=== PATIENT | female | born 1945 | race Two or more races ===

== ENCOUNTER 2023-05-04 10:03 | Emergency (ER) | payer SELFPAY ==
[2023-05-04] MEDS ORDERED: Sodium Chloride 0.9% 2.5 ML Syringe FLUSH PRN (10:09)
[2023-05-04] MEDS ORDERED: Sodium Chloride 0.9% 10 ML Syringe FLUSH PRN (10:09)
[2023-05-04 10:27] LABS: BASOPHILS PERCENT AUTO 0.3 % (0.0-1.5); EOSINOPHILS ABSOLUTE AUTO 0.1 K/uL (0.0-0.7); EOSINOPHILS PERCENT AUTO 0.8 % (0.0-7.0); HEMATOCRIT 41.1 % (36.0-46.0); HEMOGLOBIN 14.2 g/dL (12.0-16.0); LYMPHOCYTES PERCENT AUTO 15.8 % (16.0-40.0); MEAN CORPUSCULAR HEMOGLOBIN 32.6 pg (27.0-32.0); MEAN CORPUSCULAR HGB CONC 34.5 g/dL (31.0-37.0); MEAN CORPUSCULAR VOLUME 94.5 fL (80.0-98.0); MONOCYTES ABSOLUTE AUTO 0.5 K/uL (0.0-0.8); MONOCYTES PERCENT AUTO 7.6 % (0.0-15.0); NEUTROPHILS ABSOLUTE AUTO 4.5 K/uL (1.4-5.7); NEUTROPHILS PERCENT AUTO 75.5 % (48.0-80.0); NRBC ABSOLUTE 0 K/uL; PLATELET COUNT,PLT 159 K/uL (150-400); RED BLOOD CELL COUNT 4.35 M/uL (4.30-5.90); WHITE BLOOD CELL COUNT,WBC 6.02 K/uL (4.0-11.0)
[2023-05-04] MEDS ORDERED: Nitroglycerin 0.4 MG Tab.SL SL STA (10:27)
[2023-05-04] MEDS ORDERED: Aspirin 81 MG Tab.Chew PO STA (10:27)
[2023-05-04 10:42] LABS: INR 0.97 (0.86-1.11)
[2023-05-04] MEDS ORDERED: Morphine 2 MG/ML SYRINGE IVPUSH STA ×2 (10:48→11:45)
[2023-05-04 10:59] LABS: ALBUMIN 3.5 g/dL (3.4-5.0); BILIRUBIN TOTAL 0.7 mg/dL (0.2-1.0); CALCIUM 8.8 mg/dL (8.5-10.1); CARBON DIOXIDE,CO2 26.7 mmol/L (21.0-32.0); CREATININE 0.8 mg/dL (0.6-1.0); EST CRCL DRUG DOSING (CG) 40.29 mL/min; POTASSIUM,K 3.7 mmol/L (3.5-5.1); PROTEIN TOTAL,TP 7.1 g/dL (6.4-8.2)
[2023-05-04 11:02] LABS: MAGNESIUM 1.6 mg/dL (1.8-2.4)
[2023-05-04] MEDS ORDERED: Magnesium Sulfate/Water 2 GM in Premix Bag 1 BAG IV STA (11:14)
[2023-05-04] MEDS ORDERED: Iopamidol 755 Mg/ML 100 ML Bottle IVPUSH ONE (11:59)
[2023-05-04] MEDS ORDERED: oxyCODONE 5 MG Tab PO STA (12:37)
[2023-05-04] MEDS ORDERED: Acetaminophen 500 MG Tab PO STA (12:38)
== END 2023-05-04 16:41 | disposition home or self-care (01) ==
LOC: MW.ED 10:03
DX: M48.54XA Collapsed vertebra, not elsewhere classified, thoracic region, initial encounter for fracture (principal); E83.42 Hypomagnesemia; R07.9 Chest pain, unspecified; K80.20 Calculus of gallbladder without cholecystitis without obstruction; Z20.822 Contact with and (suspected) exposure to COVID-19
CPT/HCPCS: 36415; 71045; 71275; 76705; 80053; 83690; 83735; 83880; 84484; 85025; 85610; 87635; 93005; 93971; 96365; 96375; 96376; 99285; A9270; J2270; J3475; J3490; Q9967; 93010; 99284; U0002